=== PATIENT | male | born 1955 | race Caucasian/White ===

== ENCOUNTER 2018-09-28 21:54 | Emergency (ER) | payer MEDICARE, OTHER ==
[~2018-09-28] VITALS: Ht 182.9 cm; Wt 104.7 kg
[2018-09-28 21:56] VITALS: Ht 182.9 cm; Wt 104.7 kg
--- NOTE | 2018-09-29 01:51 | PSY ---
Date/Time of Note Date/Time of Note DATE: 09/29/18 TIME: 01:50 Psychiatric Subjective Eval Consent Pt consented to telemedicine: Yes Subjective Evaluation Patient location: emergency Chief Complaint: SUICIDAL IDEATION Medical history Problems Medical Problems: (1) Patient left after triage Status: Acute Allergies: Coded Allergies: No Known Allergy (Unverified , 09/28/18) Assessment and Plan Recommendation/Plan Discharge Disposition: Psychiatric inpatient Legal Status: Voluntary Assessment Additional comments: IDENTIFYING INFORMATION: 62 year old CM patient who is currently located at the hospital and for whom psychiatric consultation was requested. SOURCES OF INFORMATION: The patient who appears to be reliable and the medical records; the nursing staff. CHIEF COMPLAINT: "tired of living". HISTORY OF PRESENT ILLNESS: The patient was interviewed via telemedicine in the presence of and under the supervision of nursing staff of the hospital. The consent to conducting this interview via telemedicine was obtained by the nursing staff at the hospital. GALI Rivera reports that the patient presented with SI with plan to OD. The patient reports having SI with plan to OD on heroin. Admits to depressed mood, anhedonia, insomnia, high appetite, hopelessness, helplessness. The patient denies having AH, VH, delusions. The patient reports drinking 2 pints of vodka per day. Last drink was earlier today. + h/o tremors. The patient denies having a history of alcohol withdrawal-induced seizures, delirium tremens, visual hallucinations. The patient reports using heroin and meth via [facility] occasionally. The patient denies using any other substances. In terms of past psychiatric history, the patient reports having a history of past psychiatric hospitalizations. The patient reports having a history of past suicide attempts. Past medication trials: seroquel, prozac. PAST MEDICAL HISTORY: none. CURRENT MEDICATIONS: none. ALLERGIES TO MEDICATIONS: NKDA. LABORATORY TESTS: pending. SOCIAL HISTORY: homeless, , has 3 kids, 3 grandchildren, retired. REVIEW OF SYSTEMS: Constitutional (e.g., fever, weight loss): negative; Eyes, Ears, Nose, Mouth, Throat: negative; Cardiovascular: negative; Respiratory: negative; Gastrointestinal: negative; Genitourinary: negative; Musculoskeletal: negative; Integumentary (skin and/or breast): negative; Neurological: negative; Psychiatric: as per HPI; Endocrine: negative; Hematologic/Lymphatic: negative; Allergic/Immunologic: negative. MENTAL STATUS EXAMINATION: General Appearance and Behavior: Calm, cooperative with the interview, pleasant with the current interviewer, makes fair eye contact, fairly groomed, no abnormal movements noted, Speech: Regular rate, regular rhythm, normal latency, normal volume, somewhat decreased amount, Flow of thought: sequential, logical, goal-directed, Content of thought: no auditory hallucinations, no visual hallucinations, no delusions, positive for suicidal ideation; no homicidal ideation, Mood: "depressed", Affect: dysthymic, dysphoric, not reactive, Attention: normal based on the interview, Insight: fair, Judgment: poor, Memory: normal based on the interview, Sensorium: alert and oriented to person, place and date. ASSESSMENT: The patient's presentation and history are consistent with the diagnosis of unspecified mood disorder, alcohol use disorder, stimulant use disorder. The patient presents in a major depressive episode in the context of medication noncompliance, psychosocial stressors and substance use. No evidence of psychosis, kae, hypomania on exam. PLAN: - Medication management: Would recommend starting alcohol withdrawal protocol per ADELINE. Would also consider administering thiamine, folic acid, multivitamin. Would start haloperidol 5 mg IM PRN severe agitation q4 hours. Would start diphenhydramine 50 mg IM PRN severe agitation q4 hours. Would start lorazepam 2 mg IM PRN severe agitation q4 hours Will defer to the inpatient psychiatry team for other medication changes. - Labs: Please check CBC, CMP, Alcohol level, UDS. - Psychotherapy: Provided supportive psychotherapy and psychoeducation. - Disposition: Would recommend voluntary admission to the inpatient psychiatric unit as the patient would benefit from such an intervention so long as the patient has been cleared medically for admission to psychiatry. The patient is agreeable to being hospitalized in the inpatient psychiatric unit at this time. Would place on suicide precautions. I called the emergency room physician who is taking care of the patient to discuss about the above plan but the emergency room physician is not available at this time. I left my phone number with the hospital staff requesting a callback so that the emergency room physician can reach me when they become available. . ADENIKE SWIFT MD Sep 29, 2018 01:51
--- NOTE | 2018-09-29 02:09 | ERD ---
ER Documentation Chief Complaint Chief Complaint SUICIDAL IDEATION HPI This is a 62-year-old male comes in saying he has suicidal ideation. He denies having a plan. Patient with history of previous multiple psychiatric admissions. Denies fevers chills nausea vomiting. Denies auditory or visual hallucinations. ROS All systems reviewed and are negative except as per history of present illness. Allergies Allergies: Coded Allergies: No Known Allergy (Unverified , 09/28/18) PMhx/Soc History of Surgery: Yes (abdominal hernia ) Anesthesia Reaction: No Hx Neurological Disorder: No Hx Respiratory Disorders: No Hx Cardiac Disorders: No Hx Psychiatric Problems: No Hx Miscellaneous Medical Probl: Yes (arthritis ) Hx Alcohol Use: Yes Hx Substance Use: Yes (heroin ) Hx Tobacco Use: Yes Smoking Status: Current every day smoker Physical Exam Vitals Vital Signs Date Temp Pulse Resp B/P (MAP) Pulse Ox O2 O2 Flow FiO2 Time Delivery Rate 09/28/18 98.3 89 18 155/74 96 21:56 (101) Physical Exam Const: No acute distress Head: Atraumatic Eyes: Normal Conjunctiva ENT: Normal External Ears, Nose and Mouth. Neck: Full range of motion. No meningismus. Resp: Clear to auscultation bilaterally Cardio: Regular rate and rhythm, no murmurs Abd: Soft, non tender, non distended. Normal bowel sounds Skin: No petechiae or rashes Back: No midline or flank tenderness Ext: No cyanosis, or edema Neur: Awake and alert Psych: Normal Mood and Affect Procedures/MDM Patient's behavioral symptoms have stabilized while in the department. Patient is medically cleared and appropriate for psychiatric evaluation and work up. No e/o neurologic, toxic, infectious, or metabolic cause. She was evaluated by telemetry psychiatry, and was placed on involuntary hold. Pending placement at this time. Departure Diagnosis: Primary Impression: Suicidal ideation Condition: Stable ELIGIO CASASRenae Sep 29, 2018 02:09
[2018-09-29 08:02] VITALS: BP 117/66; PULSE 72; RESP 16
== END 2018-09-29 08:26 ==
LOC: E/R 21:54
DX: R45.851 Suicidal ideations (principal); R40.2142 Coma scale, eyes open, spontaneous, at arrival to emergency department; R40.2362 Coma scale, best motor response, obeys commands, at arrival to emergency department; R40.2252 Coma scale, best verbal response, oriented, at arrival to emergency department; F17.210 Nicotine dependence, cigarettes, uncomplicated
CPT/HCPCS: 36415; 80053; 80307; 81003; 85025